=== PATIENT | male | born 1955 | race Caucasian/White ===

== ENCOUNTER 2016-03-27 01:12 | Inpatient (IN) ==
[2016-03-27 01:40] LABS: Basophils # 0.1 K/mcL (0.0-0.2); Basophils % 1.1 %; Eosinophils # 0.2 K/mcL (0.0-0.6); Eosinophils % 2.6 %; Hematocrit 40.6 % (37.5-50.1); Hemoglobin 13.6 g/dL (12.9-16.9); Immature Granulocytes % 0.4 % (0-4); Immature Platelets 2.7 % (1.1-6.1); Lymphocytes # 2.4 K/mcL (0.6-4.6); Lymphocytes % 28.1 %; Mean Corpuscular HGB Conc 33.5 g/dL (31.6-35.5); Mean Corpuscular Hemoglobin 29.9 pg (28.0-33.3); Mean Corpuscular Volume 89.2 fL (83.0-100.0); Mean Platelet Volume 9.9 fL (9.4-12.4); Monocytes # 0.8 K/mcL (0.0-1.3); Monocytes % 9.4 %; Platelet Count 269 K/mcL (140-400); Red Blood Count 4.55 M/mcL (4.19-5.50); Red Cell Distribution Width 12.9 % (11.5-14.5); Segmented Neutrophils % 58.4 %
[2016-03-27 01:52] LABS: Bilirubin,Urine Negative (Negative); Blood,Urine Negative (Negative); Clarity,Urine Clear (Clear); Color,Urine Yellow (Yellow); Glucose,Urine (UA) >=1000 mg/dL (Normal); Ketones,Urine Negative (Negative); Leukocyte Esterase,Urine Negative (Negative); Nitrite,Urine Negative (Negative); Protein,Urine 30 mg/dL (Neg-Trace); Specific Gravity,Urine 1.026 (1.010-1.025); Urobilinogen,Urine Normal (Normal)
[2016-03-27 01:54] LABS: BUN/Creatinine Ratio 14 (6-26); Blood Urea Nitrogen 29 mg/dL (8-26); Calcium 9.1 mg/dL (8.6-10.8); Carbon Dioxide 21 mEq/L (19-29); Chloride 100 mEq/L (98-109); Glucose 375 mg/dL (70-99); Osmolality,Calculated 297 (280-300); Potassium 4.4 mEq/L (3.5-4.5); Sodium 133 mEq/L (136-145); eGFR For African Americans 41 (> 60); eGFR For Non-African Americans 34 (> 60)
[2016-03-27 01:55] LABS: Acetaminophen < 1.0 mcg/mL (10-30); Ethanol < 10 mg/dL (0-10); Salicylate < 5.0 mg/dL (15-30)
[2016-03-27 01:57] LABS: Bacteria,Urine Few per hpf (None-Few); Hyaline Casts,Urine None Seen per lpf (None-Few); RBC,Urine 0-3 per hpf (0-3); Squamous Epithelial Cell,Urine Moderate per lpf (None-Few)
[2016-03-27 01:58] LABS: Amphetamine Screen,Urine Negative ng/mL (Cutoff=1000); Barbiturate Screen,Urine Negative ng/mL (Cutoff=200); Benzodiazepines Screen,Urine Negative ng/mL (Cutoff=200); Cannabinoid Screen,Urine Negative ng/mL (Cutoff = 50); Cocaine Screen,Urine Negative ng/mL (Cutoff= 300); Opiate Screen,Urine Negative ng/mL (Cutoff=300); Phencyclidine Screen,Urine Negative ng/mL (Cutoff=25)
[2016-03-27] MEDS ORDERED: Insulin NPH/REG 70/30 100 UNIT/ML (x5UNIT) SQ ONE (02:10)
[2016-03-27 03:11] LABS: VBG HCO3 27.6 mEq/L (21-27); VBG PH 7.35 pH Units (7.32-7.42)
--- NOTE | 2016-03-27 04:56 | Emergency Department Note ---
Disposition Clinical Impression: Suicidal ideation Disposition: Admitted As Inpatient Condition: Good Time of Disposition: 06:24 Psych HPI - General Chief Complaint: ED Psychiatric Symptoms Stated Complaint: SI Time Seen by Provider: 03/27/16 01:26 Source: patient Nursing Notes Reviewed: Yes Vital Signs Reviewed: Yes - History of Present Illness Pt complaint: suicidal ideation Onset (ago): Just [employer] Duration: getting worse History of similar episodes: No Improves with: none Worsens with: none Context: significant life stressor Alleged intoxication: No Associated Psychiatric Symptoms: other (aggressioin) Associated symptoms: Denies: confusion Traumatic symptoms: denies traumatic injury Treatments prior to arrival: [place] [facility]police ([place] stand off) Self harm or harm to others: admits thoughts of self harm, has plan - Related Data Allergies Allergy/AdvReac Type Severity Reaction Status Date / Time Penicillins Allergy See Verified 03/27/16 01:14 Comments Sulfa (Sulfonamide Allergy See Verified 03/27/16 01:14 Antibiotics) Comments All systems ED: reviewed and negative except as stated. Constitutional: Denies: fever Eyes: Denies: eye pain ENT ED: Denies: ear pain Cardiovascular: Denies: chest pain Gastrointestinal: Denies: abdominal pain, nausea, vomiting Genitourinary: Denies: dysuria Musculoskeletal: Denies: back pain Integumentary: Denies: rash Neurological: Reports: other (Chronic neuropathy). Denies: headache Psychiatric: Denies: anxiety Endocrine: Denies: fatigue Hematological/Lymphatic: Denies: easy bleeding Allergic/Immunologic: Denies: facial swelling Past Medical History - Past Medical History Medical history: Reports: CHF, COPD, diabetes, renal disease Psychiatric history: Reports: depression - Social History Smoking Status: Former smoker Smokeless Tobacco Status: No Alcohol use: Reports: none Drug use: Reports: none Physical Exam - General Limitations: no limitations General appearance: alert, in no apparent distress - Head Head exam: normocephalic - Eye Eye exam: Present: normal appearance, EOMI - ENT ENT exam: mucous membranes moist - Neck Neck exam: Present: full ROM - Chest Chest inspection: Present: symmetric chest wall rise - Respiratory Respiratory exam: Present: normal lung sounds bilaterally. Absent: respiratory distress - Cardiovascular Cardiovascular exam: Present: regular rate, normal rhythm - Abdominal Exam Abdominal exam: Present: soft, Non-Tender - Extremities Exam Extremities exam: Present: full ROM, normal capillary refill - Back Exam Back exam: Present: full ROM - Neurological Exam Neurological exam: Present: alert, oriented X3 - Psychiatric Psychiatric exam: Present: normal affect, depressed - Skin Skin exam: Present: warm, dry, intact, normal color. Absent: rash, cyanosis, diaphoresis Course Course Narrative: 60-year-old male diabetic arrives via squad with reported suicidal ideation. It is reported that patient had been threatening to take his life the gun during a standoff with the local authorities. He is reluctant to discuss much of the details that brought him here tonight area. Patient seen and examined. No acute distress and does not look toxic. Patient is a well-developed well- nourished obese male in no acute distress, does not look toxic. Alert and oriented 3. No cyanosis or diaphoresis. Lungs clear to auscultation bilaterally. Heart regular rate and rhythm. Abdomen soft nontender. Patient' s voice of his extremities. No gross focal neurological deficits. Does not appear agitated. He is cooperative during examination, and is agreeable for psychiatric evaluation. Workup initiated for medical clearance for psychiatric evaluation. - Reevaluation(s) Reevaluation #1: Blood glucose 375. Patient's nighttime insulin ordered, 60 units.Novolin 70/ 30. His last dose was this morning, and he has missed his nighttime dose. Patient self monitoring blood glucose fasting at home when 180s to 280s. Patient denies any frequent hypoglycemia, or asymptomatic hypoglycemia. At this point DKA is less likely, however will order serum ketones and VBG to help with medical clearance. Miss these are abnormal, patient medically cleared for 1 a evaluation Time: 02:25 Vital Signs Temperature 98.3 F 03/27/16 01:18 Pulse Rate 53 03/27/16 01:18 Respiratory Rate 16 03/27/16 01:18 Blood Pressure 136/73 03/27/16 01:18 O2 Sat by Pulse Oximetry 95 03/27/16 01:18 Temperature 98.3 F 03/27/16 01:18 Pulse Rate 50 03/27/16 04:57 Respiratory Rate 16 03/27/16 05:45 Blood Pressure 104/60 03/27/16 05:45 O2 Sat by Pulse Oximetry 95 03/27/16 04:57 Oxygen Delivery Oxygen Delivery Room Air Psych - MDM Narrative Medical decision making narrative: Patient was medically cleared and evaluated by when a staff did discuss patient with the on-call psychiatrist Dr. Rowe who agreed for involuntary admission for inpatient treatment and stabilization. Patient was pink slipped. His vitals are within normal limits. Patient be transferred to inpatient care. - Lab Data Lab results reviewed: Yes I reviewed the patient's lab results. Result diagrams: 03/27/16 01:34 03/27/16 01:34 Lab Results 03/27/16 03/27/16 03/27/16 Range/Units 01:34 01:34 01:34 WBC 8.5 (4.3-11.1) K/mcL RBC 4.55 (4.19-5.50) M/mcL Hgb 13.6 (12.9-16.9) g/dL Hct 40.6 (37.5-50.1) % MCV 89.2 (83.0-100.0) fL MCH 29.9 (28.0-33.3) pg MCHC 33.5 (31.6-35.5) g/dL RDW 12.9 (11.5-14.5) % Plt Count 269 (140-400) K/mcL MPV 9.9 (9.4-12.4) fL Immature Gran % 0.4 (0-4) % Seg Neutrophils % 58.4 % Lymphocytes % 28.1 % Monocytes % 9.4 % Eosinophils % 2.6 % Basophils % 1.1 % Neutrophils # 5.0 (1.6-8.9) K/mcL Lymphocytes # 2.4 (0.6-4.6) K/mcL Monocytes # 0.8 (0.0-1.3) K/mcL Eosinophils # 0.2 (0.0-0.6) K/mcL Basophils # 0.1 (0.0-0.2) K/mcL Immature Plt Fraction 2.7 (1.1-6.1) % VBG pH (7.32-7.42) pH Units VBG pCO2 (41-51) mmHg VBG pO2 (25-40) mmHg VBG HCO3 (21-27) mEq/L Sodium 133 L (136-145) mEq/L Potassium 4.4 (3.5-4.5) mEq/L Chloride 100 (98-109) mEq/L Carbon Dioxide 21 (19-29) mEq/L BUN 29 H (8-26) mg/dL Creatinine 2.02 H (0.72-1.25) mg/dL Est GFR ( Amer) 41 L (> 60) Est GFR (Non-Af Amer) 34 L (> 60) BUN/Creatinine Ratio 14 (6-26) Glucose 375 H (70-99) mg/dL POC Glucose (58-89) Calculated Osmolality 297 (280-300) Calcium 9.1 (8.6-10.8) mg/dL Beta-Hydroxybutyric Acd 0.18 (0.02-0.27) mmol/L Urine Color (Yellow) Urine Clarity (Clear) Urine pH (5.0-8.0) pH Units Ur Specific [place] (1.010-1.025) Urine Protein (Neg-Trace) mg/dL Urine Glucose (UA) (Normal) mg/dL Urine Ketones (Negative) mg/dL Urine Blood (Negative) Urine Nitrite (Negative) Urine Bilirubin (Negative) Urine Urobilinogen (Normal) mg/dL Ur Leukocyte Esterase (Negative) Urine Microscopic RBC (0-3) per hpf Urine Microscopic WBC (0-3) per hpf Ur Squamous Epith Cells (None-Few) per lpf Urine Bacteria (None-Few) per hpf Hyaline Casts (None-Few) per lpf Salicylates < 5.0 L (15-30) mg/dL Urine Opiates Screen (Pqzvcq=562) ng/mL Acetaminophen < 1.0 L (10-30) mcg/mL Ur Barbiturates Screen (Ouuwwt=107) ng/mL Ur Phencyclidine Scrn (Cutoff=25) ng/mL Ur Amphetamines Screen (Hzuoie=0942) ng/mL U Benzodiazepines Scrn (Fnktcu=651) ng/mL Urine Cocaine Screen (Cutoff= 300) ng/mL U Marijuana (THC) Screen (Cutoff = 50) ng/mL Ethyl Alcohol < 10 (0-10) mg/dL 03/27/16 03/27/16 03/27/16 Range/Units 01:45 01:45 02:58 WBC (4.3-11.1) K/mcL RBC (4.19-5.50) M/mcL Hgb (12.9-16.9) g/dL Hct (37.5-50.1) % MCV (83.0-100.0) fL MCH (28.0-33.3) pg MCHC (31.6-35.5) g/dL RDW (11.5-14.5) % Plt Count (140-400) K/mcL MPV (9.4-12.4) fL Immature Gran % (0-4) % Seg Neutrophils % % Lymphocytes % % Monocytes % % Eosinophils % % Basophils % % Neutrophils # (1.6-8.9) K/mcL Lymphocytes # (0.6-4.6) K/mcL Monocytes # (0.0-1.3) K/mcL Eosinophils # (0.0-0.6) K/mcL Basophils # (0.0-0.2) K/mcL Immature Plt Fraction (1.1-6.1) % VBG pH (7.32-7.42) pH Units VBG pCO2 (41-51) mmHg VBG pO2 (25-40) mmHg VBG HCO3 (21-27) mEq/L Sodium (136-145) mEq/L Potassium (3.5-4.5) mEq/L Chloride (98-109) mEq/L Carbon Dioxide (19-29) mEq/L BUN (8-26) mg/dL Creatinine (0.72-1.25) mg/dL Est GFR ( Amer) (> 60) Est GFR (Non-Af Amer) (> 60) BUN/Creatinine Ratio (6-26) Glucose (70-99) mg/dL POC Glucose 317 H (58-89) Calculated Osmolality (280-300) Calcium (8.6-10.8) mg/dL Beta-Hydroxybutyric Acd (0.02-0.27) mmol/L Urine Color Yellow (Yellow) Urine Clarity Clear (Clear) Urine pH 6.0 (5.0-8.0) pH Units Ur Specific [place] 1.026 H (1.010-1.025) Urine Protein 30 H (Neg-Trace) mg/dL Urine Glucose (UA) >=1000 H (Normal) mg/dL Urine Ketones Negative (Negative) mg/dL Urine Blood Negative (Negative) Urine Nitrite Negative (Negative) Urine Bilirubin Negative (Negative) Urine Urobilinogen Normal (Normal) mg/dL Ur Leukocyte Esterase Negative (Negative) Urine Microscopic RBC 0-3 (0-3) per hpf Urine Microscopic WBC 3-5 H (0-3) per hpf Ur Squamous Epith Cells Moderate H (None-Few) per lpf Urine Bacteria Few (None-Few) per hpf Hyaline Casts None Seen (None-Few) per lpf Salicylates (15-30) mg/dL Urine Opiates Screen Negative (Feeoyd=958) ng/mL Acetaminophen (10-30) mcg/mL Ur Barbiturates Screen Negative (Ezuaag=220) ng/mL Ur Phencyclidine Scrn Negative (Cutoff=25) ng/mL Ur Amphetamines Screen Negative (Vdbjzf=3408) ng/mL U Benzodiazepines Scrn Negative (Yxioba=608) ng/mL Urine Cocaine Screen Negative (Cutoff= 300) ng/mL U Marijuana (THC) Screen Negative (Cutoff = 50) ng/mL Ethyl Alcohol (0-10) mg/dL 03/27/16 03/27/16 03/27/16 Range/Units 03:00 03:04 04:48 WBC (4.3-11.1) K/mcL RBC (4.19-5.50) M/mcL Hgb (12.9-16.9) g/dL Hct (37.5-50.1) % MCV (83.0-100.0) fL MCH (28.0-33.3) pg MCHC (31.6-35.5) g/dL RDW (11.5-14.5) % Plt Count (140-400) K/mcL MPV (9.4-12.4) fL Immature Gran % (0-4) % Seg Neutrophils % % Lymphocytes % % Monocytes % % Eosinophils % % Basophils % % Neutrophils # (1.6-8.9) K/mcL Lymphocytes # (0.6-4.6) K/mcL Monocytes # (0.0-1.3) K/mcL Eosinophils # (0.0-0.6) K/mcL Basophils # (0.0-0.2) K/mcL Immature Plt Fraction (1.1-6.1) % VBG pH 7.35 (7.32-7.42) pH Units VBG pCO2 50 (41-51) mmHg VBG pO2 37 (25-40) mmHg VBG HCO3 27.6 H (21-27) mEq/L Sodium (136-145) mEq/L Potassium (3.5-4.5) mEq/L Chloride (98-109) mEq/L Carbon Dioxide (19-29) mEq/L BUN (8-26) mg/dL Creatinine (0.72-1.25) mg/dL Est GFR ( Amer) (> 60) Est GFR (Non-Af Amer) (> 60) BUN/Creatinine Ratio (6-26) Glucose (70-99) mg/dL POC Glucose 272 H 231 H (58-89) Calculated Osmolality (280-300) Calcium (8.6-10.8) mg/dL Beta-Hydroxybutyric Acd (0.02-0.27) mmol/L Urine Color (Yellow) Urine Clarity (Clear) Urine pH (5.0-8.0) pH Units Ur Specific [place] (1.010-1.025) Urine Protein (Neg-Trace) mg/dL Urine Glucose (UA) (Normal) mg/dL Urine Ketones (Negative) mg/dL Urine Blood (Negative) Urine Nitrite (Negative) Urine Bilirubin (Negative) Urine Urobilinogen (Normal) mg/dL Ur Leukocyte Esterase (Negative) Urine Microscopic RBC (0-3) per hpf Urine Microscopic WBC (0-3) per hpf Ur Squamous Epith Cells (None-Few) per lpf Urine Bacteria (None-Few) per hpf Hyaline Casts (None-Few) per lpf Salicylates (15-30) mg/dL Urine Opiates Screen (Xzamkq=917) ng/mL Acetaminophen (10-30) mcg/mL Ur Barbiturates Screen (Nytogb=352) ng/mL Ur Phencyclidine Scrn (Cutoff=25) ng/mL Ur Amphetamines Screen (Hdzehb=6970) ng/mL U Benzodiazepines Scrn (Bfahus=312) ng/mL Urine Cocaine Screen (Cutoff= 300) ng/mL U Marijuana (THC) Screen (Cutoff = 50) ng/mL Ethyl Alcohol (0-10) mg/dL Psychiatric Medical Clearance - Medical Clearance Checklist Medical History: No Social History Section defined Current Vitals: Last Vital Signs Temp 98.3 F 03/27/16 01:18 Pulse 50 03/27/16 04:57 Resp 16 03/27/16 05:45 BP 104/60 03/27/16 05:45 Pulse Ox 95 03/27/16 04:57 Psychiatric Lab Panel: Drug Levels and Toxicity 03/27/16 03/27/16 01:34 01:45 Urine Opiates Screen Negative Acetaminophen < 1.0 L Ur Barbiturates Screen Negative Ur Phencyclidine Scrn Negative Ur Amphetamines Screen Negative U Benzodiazepines Scrn Negative Urine Cocaine Screen Negative U Marijuana (THC) Screen Negative Ethyl Alcohol < 10 Abnormal Labs: Abnormal lab results VBG HCO3 27.6 mEq/L (21-27) H 03/27/16 03:04 Sodium 133 mEq/L (136-145) L 03/27/16 01:34 BUN 29 mg/dL (8-26) H 03/27/16 01:34 Creatinine 2.02 mg/dL (0.72-1.25) H 03/27/16 01:34 Est GFR ( Amer) 41 (> 60) L 03/27/16 01:34 Est GFR (Non-Af Amer) 34 (> 60) L 03/27/16 01:34 Glucose 375 mg/dL (70-99) H 03/27/16 01:34 POC Glucose 231 (58-89) H 03/27/16 04:48 Ur Specific [place] 1.026 (1.010-1.025) H 03/27/16 01:45 Urine Protein 30 mg/dL (Neg-Trace) H 03/27/16 01:45 Urine Glucose (UA) >=1000 mg/dL (Normal) H 03/27/16 01:45 Urine Microscopic WBC 3-5 per hpf (0-3) H 03/27/16 01:45 Ur Squamous Epith Cells Moderate per lpf (None-Few) H 03/27/16 01:45 Salicylates < 5.0 mg/dL (15-30) L 03/27/16 01:34 Acetaminophen < 1.0 mcg/mL (10-30) L 03/27/16 01:34 Statement of Medical Clearance: I have evaluated the patient, reviewed diagnostic information, and certify that the patient's medical condition is sufficiently stable that transfer to the psychiatric unit does not pose a significant risk of deterioration.
[2016-03-27] MEDS ORDERED: *HR* LORazepam 2 MG/ML VIAL IM PRN (06:02)
[2016-03-27] MEDS ORDERED: *HR* LORazepam 1 MG TABLET PO PRN (06:02)
[2016-03-27] MEDS ORDERED: MOM Conc 10 ML UD.LIQ PO PRN (06:02)
[2016-03-27] MEDS ORDERED: traZODone 50 MG TABLET PO PRN (06:02)
[2016-03-27] MEDS ORDERED: Acetaminophen 325 MG TABLET PO PRN (06:02)
[2016-03-27] MEDS ORDERED: Mag Hydrox/Al Hydrox/Simeth 30 ML UDC PO PRN (06:02)
[2016-03-27] MEDS ORDERED: hydrOXYzine pamoate 25 MG CAPSULE PO PRN (06:02)
[2016-03-27] MEDS ORDERED: Haloperidol Lactate 5 MG/ML VIAL IM PRN (06:02)
[2016-03-27] MEDS ORDERED: D5% in Water 1,000 ML IV PRN (09:17)
[2016-03-27] MEDS ORDERED: Dextrose Gel 15 GM PO PRN ×2 (09:17)
[2016-03-27] MEDS ORDERED: *HR* Dextrose 50 % in Water (Syg) 50 ML SYRINGE IVP PRN (09:17)
--- NOTE | 2016-03-27 09:24 | Internal Medicine Consult Note ---
<Roberta Estrada - Last Filed: 03/27/16 09:55> Date of Encounter: 03/27/16 Time of Encounter: 08:50 Internal Medicine - CN: HPI - Data of Consult Consult date: 03/27/16 Requesting Physician: Orestes Rowe DO - Consult Narrative History of present illness: Mr. Ribeiro is a 60 year old male with uncontrolled Type II DM, CHF, COPD, and CKD Stage III. We were called to consult pt on mental health unit for his elevated POC blood glucose, as well as his serum glucose. Pt is admitted for depression and SI, and during exam was very flat and states that he knows little about his medications, as his takes care of them for him. Normal fasting blood glucose for him is anywhere from 160mg/dl-250mg/dl. Pt states that he does not watch his diet and that he doesn't skip any doses of insulin. Trending his labs for the last 2 years, pt's serum glucose is chronically elevated, normally in the 200s, 375mg/dl today. Pt's creatinine is also chronically elevated, as well, 2.02 today. - Constitutional Constitutional: no fatigue, no fever(s), no weakness, no weight gain, no weight loss - EENT Eyes: no change in vision, no loss of vision - Cardiovascular Cardiovascular ROS IM: no chest pain, no dyspnea on exertion, no lightheadedness - Respiratory Respiratory: no cough, no dyspnea on exertion, no wheezing, no chest congestion - Gastrointestinal Gastrointestinal: no abdominal pain, no diarrhea, no nausea, no vomiting - Musculoskeletal Musculoskeletal ROS IM: no muscle weakness - Psychiatric Psychiatric: behavioral changes, suicidal ideation Past Med Surg Social Fam HX - Past Medical History Medical history: CHF, COPD, diabetes, renal disease Psychiatric history: depression - Social History Smoking Status: Former smoker Smokeless Tobacco Status: No Alcohol use: none Drug use: none Internal Medicine - CN: Meds Amlodipine Besylate 10 mg PO DAILY 03/27/16 [History] Aspirin 81 mg PO DAILY 03/27/16 [History] Atorvastatin [Lipitor] 40 mg PO HS 03/27/16 [History] Citalopram Hydrobromide [Citalopram HBr] 80 mg PO DAILY 03/27/16 [History] Ergocalciferol (VITAMIN D2) [Vitamin D2] 50,000 unit PO 2XW 03/27/16 [History] Furosemide [Lasix] 40 mg PO DAILY 03/27/16 [History] Gabapentin [Neurontin] 600 mg PO BID 03/27/16 [History] Glimepiride [Amaryl] 4 mg PO QAM 03/27/16 [History] Insulin Glargine,Hum.rec.anlog [Lantus Solostar] 20 unit SQ HS 03/27/16 [History ] Insulin NPH Hum/Reg Insulin Hm [Novolin 70-30 100 Unit/ml Vial] 45 unit SQ BID PRN 03/27/16 [History] Metoprolol [Lopressor] 25 mg PO BID 03/27/16 [History] Spironolactone [Aldactone] 50 mg PO DAILY 03/27/16 [History] Allergies Penicillins Allergy (Verified 03/27/16 01:14) See Comments unknown, had rxn as child Sulfa (Sulfonamide Antibiotics) Allergy (Verified 03/27/16 01:14) See Comments unknown Internal Medicine - CN: Exam - Constitutional Vitals: Temp Pulse Resp BP Pulse Ox 98.2 F 76 20 160/91 95 03/27/16 08:37 03/27/16 08:37 03/27/16 08:37 03/27/16 08:37 03/27/16 04:57 General appearance IM: Present: A&O X 3, pleasant, obese, answers questions appropriately - Head Head exam: Present: atraumatic - Eye Eye exam: Present: normal appearance, conjuntiva pink - ENT ENT exam: Present: mucous membranes moist - Neck Neck exam general surgery: Present: normal inspection. Absent: tenderness - Respiratory Respiratory exam: Present: decreased breath sounds, rales, rhonchi, wheezes. Absent: accessory muscle use, chest wall tenderness, respiratory distress - Cardiovascular Cardiovascular exam IM: Present: RRR, +S1, +S2 - GI/Abdominal GI/Abdominal exam IM: Present: distended, normal bowel sounds. Absent: tenderness - Extremities Exam Extremities exam IM: Present: pedal edema, warm Additional comments: Pt with +2 non-pitting edema, pt states that it is not worse than normal. - Neurological Exam Neurological exam: Present: alert, oriented X3, strengths equal and symetr throughout Internal Medicine - CN: Reslt - Labs CBC & Chem 7: 03/27/16 01:34 03/27/16 01:34 - Assessment and Plan (1) Uncontrolled diabetes mellitus Current Visit: Yes Status: Chronic Assessment and plan: Pt with uncontrolled DM with consistently high blood glucose. Pt states that is his consistent with his medications and is non-adherent to diet or exercise. Will monitor blood glucose ac/hs Nutrition insulin, dosed for creatinine clearance Sliding scale coverage Diabetic/Renal diet Consult nutrition educator A1c Qualifiers: Diabetes mellitus type: type 2 Diabetes mellitus complication status: with kidney complications Diabetes mellitus complication detail: with chronic kidney disease (2) CKD (chronic kidney disease) stage 3, GFR 30-59 ml/min Current Visit: Yes Status: Chronic Assessment and plan: Creatinine stable. Baseline at this time. Avoid NSAIDs Avoid nephrotoxins Continue to monitor. Consult Discharge Plan - Plan Referrals: [facility] [Outside] - 04/03/16 10:00 am (The above appointment is with Esperanza Skelton, counselor. Please arrive 15 minutes early to complete paperwork. Please bring your insurance card and photo ID. If you do not have insurance, bring proof of income to apply for the sliding fee scale. Your counselor will refer you to see the psychiatric prescriber as well if indicated. If you are unable to keep this appointment, 24 hour business notice of cancellation is expected. ) <Clark Lynch - Last Filed: 03/27/16 16:24> Date of Encounter: 03/27/16 - Attending Attestation I examined this patient and my medical decision-making was reviewed with the Advanced Practice Provider. I agree with the documented findings, disposition and treatment plan as described except to the extent set forth below. Pt is NAD, morbidly obese, heart: RRR S1S2, no murmur Plan:hold oral anti DM meds, start nsulin Levemir 35 U BID (pt reports use of 60U 70/30 bid at home), premeal humalog and sliding scale. Plan d/w psychiatrist. will order CPAP QHS for DIMITRI. Will follow Internal Medicine - CN: HPI - Data of Consult Requesting Physician: Orestes Rowe DO - Consult Narrative History of present illness: Mr. Ribeiro is a 60 year old male Internal Medicine - CN: Exam - Constitutional Vitals: Temp Pulse Resp BP Pulse Ox 100.4 F H 69 16 118/69 95 03/27/16 16:00 03/27/16 16:00 03/27/16 16:00 03/27/16 16:00 03/27/16 04:57 Internal Medicine - CN: Yamileth - Labs CBC & Chem 7: 03/27/16 01:34 03/27/16 01:34
[2016-03-27] MEDS: Insulin LISPRO 300 UNITS/3 ML VIAL SQ SCH ×4 (11:48→16:34)
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
[2016-03-27] MEDS ORDERED: Insulin LISPRO 300 UNITS/3 ML VIAL SQ SCH (21:00)
[2016-03-27] MEDS: Gabapentin 300 MG CAPSULE PO SCH (21:04)
[2016-03-27] MEDS: Insulin DETEMIR 100 UNIT/ML X5UNITS SQ SCH (21:04)
[2016-03-28] MEDS: Insulin LISPRO 300 UNITS/3 ML VIAL SQ SCH ×4 (08:16→11:39)
[2016-03-28 08:23] LABS: Hematocrit 42.3 % (37.5-50.1); Hemoglobin 14.1 g/dL (12.9-16.9); Immature Platelets 2.6 % (1.1-6.1); Mean Corpuscular HGB Conc 33.3 g/dL (31.6-35.5); Mean Corpuscular Hemoglobin 30.2 pg (28.0-33.3); Mean Corpuscular Volume 90.6 fL (83.0-100.0); Mean Platelet Volume 10.2 fL (9.4-12.4); Red Blood Count 4.67 M/mcL (4.19-5.50); Red Cell Distribution Width 13.3 % (11.5-14.5)
[2016-03-28 08:36] LABS: Calcium 9.3 mg/dL (8.6-10.8); Potassium 4.6 mEq/L (3.5-4.5)
[2016-03-28] MEDS: Gabapentin 300 MG CAPSULE PO SCH (08:48)
[2016-03-28] MEDS: Insulin DETEMIR 100 UNIT/ML X5UNITS SQ SCH (08:53)
[2016-03-28] MEDS ORDERED: amLODIPine 5 MG TABLET PO SCH (09:00)
[2016-03-28] MEDS ORDERED: Aspirin 81 MG TAB.CHEW PO SCH (09:00)
[2016-03-28] MEDS ORDERED: Furosemide 40 MG TABLET PO SCH (09:00)
[2016-03-28 12:03] VITALS: BP 126/84
--- NOTE | 2016-03-28 13:59 | Discharge Summary ---
Date of Encounter: 03/28/16 Time of Encounter: 14:00 Diagnosis - Discharge Diagnosis (1) Major depression, recurrent, chronic Status: Acute Medications - Discharge Medications Amlodipine Besylate 10 mg PO DAILY 03/27/16 [History] Aspirin 81 mg PO DAILY 03/27/16 [History] Atorvastatin [Lipitor] 40 mg PO HS 03/27/16 [History] Citalopram Hydrobromide [Citalopram HBr] 40 mg PO DAILY 03/27/16 [History] Ergocalciferol (VITAMIN D2) [Vitamin D2] 50,000 unit PO 2XW 03/27/16 [History] Furosemide [Lasix] 40 mg PO DAILY 03/27/16 [History] Gabapentin [Neurontin] 600 mg PO BID 03/27/16 [History] Glimepiride [Amaryl] 4 mg PO QAM 03/27/16 [History] Insulin Glargine,Hum.rec.anlog [Lantus Solostar] 20 unit SQ HS 03/27/16 [History ] Insulin NPH Hum/Reg Insulin Hm [Novolin 70-30 100 Unit/ml Vial] 45 unit SQ BID PRN 03/27/16 [History] Metoprolol [Lopressor] 25 mg PO BID 03/27/16 [History] Spironolactone [Aldactone] 50 mg PO DAILY 03/27/16 [History] Allergies Penicillins Allergy (Verified 03/27/16 01:14) See Comments unknown, had rxn as child Sulfa (Sulfonamide Antibiotics) Allergy (Verified 03/27/16 01:14) See Comments unknown Results Procedures and tests throughout hospitalization: Completed Lab Orders Category Date Time Status Chem 7 [Basic Metabolic Panel] AM 0400 Lab 03/28/16 07:59 Completed Complete Blood Count w/o Diff [HEME] AM 0400 Lab 03/28/16 07:59 Completed Hgb A1C Routine Lab 03/27/16 01:34 Completed Provider Date of admission: 03/27/16 05:55 Primary care physician: PCP NO Consults: 03/27/16 06:19 Consult to Hospitalist [CONS] Routine Consulting Provider: Hospitalist Otiliagee Reason for Consult: diabetes management Time Notified: 06:30 Call Completed: Yes 03/27/16 09:17 Consult to Game Protector [CONS] Routine Comment: Discharging clinician: Orestes Rowe Assessment and Plan - Patient/Caregiver Discharge Instructions Activity: other (Admit [facility] medical [facility]) Diet: diabetic diet - Follow up Plan Follow up with: [facility] [Outside] - 04/03/16 10:00 am (The above appointment is with Esperanza Skelton, counselor. Please arrive 15 minutes early to complete paperwork. Please bring your insurance card and photo ID. If you do not have insurance, bring proof of income to apply for the sliding fee scale. Your counselor will refer you to see the psychiatric prescriber as well if indicated. If you are unable to keep this appointment, 24 hour business notice of cancellation is expected. ) Functional capacity at discharge: independent ambulation Overall status at discharge: other (Patient is no longer suicidal, but is experiencing medical issues that necessitate an admission to a medical unit) Disposition: Transfer Hospital Swing Bed Hospital Course Hospital course: Mr. Ribeiro is a 60 year old male who was seen today while he was still lying in his medical bed in his room on 1A with his CPAP and oxygen on. He told me, regarding his mental health, he was "pretty good". He denied being suicidal/ homicidal. He states that he feels very tired today and did not sleep well last night. He reports having shortness of breath and "feeling like my lungs are filling up with fluid again like they did before when I had congestive heart failure". He feels very thirsty and his blood glucose has been running in the 200's the majority of time since he has been here. He tells me this is not unusual for his blood glucose. He also tells me that earlier this morning , he was having tightness on the left side of his chest and arm. He tells me that it lasted for a brief period of less than a minute, but he thought I should know. A consult was ordered for medical to come down and evaluate for his shortness of breath and previous chest pain. An EKG was completed and medical evaluated his elevated blood glucose and with his complex, poor controlled medical issues and poor hydration, decided to admit him to a medical unit. His arrived while this was taking place. I was able to clarify with her his antidepressant medication which is Celexa 80 mg PO Q day, which he is taking and he was not aware of it. I discussed with her and him that that was a high dose and the possibility of decreasing the dose and/or potentially augmenting it with Wellbutrin in the future targeting his depressive symptoms. His medical situation would have to be taken into consideration since the Wellbutrin could cause an elevation in blood pressure. I also discussed that that high-dose Celexa might, in part, be what is causing his decreased energy and feeling slow and tired. That coupled with his continuous elevated blood glucose as well as other chronic medical issues of renal failure. I explained to the nurse practitioner who was orchestrating his medical admission that I would come up and talk to him further about psychotropic medications while he was on the medical floor and work with him and his to make changes if needed I explained to the nurse practitioner, also, that he was no longer suicidal and did not need to be on a one-to-one on the unit medical. Discharge orders were given to discharge off the on a psychiatric unit and he was admitted to a medical unit for further evaluation and treatment. - Time Spent with Patient Total time spent providing and/or coordinating discharge services: 50 min Greater than 30 minutes (Transferring to a medical unit and I will follow up with him there tomorrow) Quality - Multiple Antipsychotics Patient discharged on 2 or more antipsychotic medications: No Procedures - Procedures Procedures: Medication Management Mental Status Exam - Mental Status Exam Patient orientation: Yes Person, Yes Time, Yes Place, Yes Circumstance Level of alertness: Alert Patient appearance: Appropriate, Obese Behavior: anxious (Feels short of breath), restless Psychomotor activity: Normal Eye contact: Maintains Eye Contact Mood description: Anxious Affect description: congruent with mood Speech pattern: Normal rate, Normal rhythm, Normal tone Speech Volume: Normal Thought process: Linear, Goal Oriented Thought Content: Yes Intact Judgment: Good Insight: Partial
[2016-03-28 14:37] LABS: Bilirubin,Urine Negative (Negative); Blood,Urine Negative (Negative); Clarity,Urine Clear (Clear); Color,Urine Yellow (Yellow); Glucose,Urine (UA) 500 mg/dL (Normal); Ketones,Urine Negative (Negative); Leukocyte Esterase,Urine Trace (Negative); Nitrite,Urine Negative (Negative); Protein,Urine 30 mg/dL (Neg-Trace); Specific Gravity,Urine 1.015 (1.010-1.025); Urobilinogen,Urine Normal (Normal)
[2016-03-28 15:01] LABS: Bacteria,Urine Few per hpf (None-Few); WBC,Urine 0-3 per hpf (0-3)
--- NOTE | 2016-03-30 00:30 | Electrocardiograph Report ---
[facility] Test Date: 2016-03-28 Pat Name: Eduardo Ribeiro Department: 101 Room: 1A22 Gender: M [employer] Bi Developer: OCTAVIO : 1955 Requested By: Roberta Estrada Order Number: [id number] Reading MD: Femi Cruz MD Measurements Intervals [place] Rate: 54 P: 64 DE: 194 QRS: 59 QRSD: 88 T: 74 QT: 419 QTc: 404 Interpretive Statements SINUS BRADYCARDIA LOW QRS VOLTAGE IN PRECORDIAL LEADS Electronically Signed On 03-30-16 00:29:35 EST by Femi Crzu MD
== END 2016-03-28 14:30 | disposition other institution (70) | DRG 885 ==
LOC: EMEROO 01:12 → 1ANU 05:45
PROVIDERS: ADMIT Psychiatry & Neurology Psychiatry; ATTEND Psychiatry & Neurology Psychiatry

== ENCOUNTER 2016-03-28 13:40 | Observation (INO) ==
[2016-03-28] MEDS ORDERED: Acetaminophen 325 MG TABLET PO PRN (13:44)
[2016-03-28] MEDS ORDERED: Naloxone 0.4 MG/ML INJ IVP PRN (13:44)
[2016-03-28] MEDS ORDERED: D5% in Water 1,000 ML IV PRN (16:20)
[2016-03-28] MEDS ORDERED: Dextrose Gel 15 GM PO PRN ×2 (16:20)
[2016-03-28] MEDS ORDERED: *HR* Dextrose 50 % in Water (Syg) 50 ML SYRINGE IVP PRN (16:20)
[2016-03-28] MEDS ORDERED: Insulin LISPRO 300 UNITS/3 ML VIAL SQ SCH ×2 (16:30→21:00)
--- NOTE | 2016-03-28 16:31 | Internal Med History&Physical ---
Date of Encounter: 03/28/16 Time of Encounter: 13:00 Assessment and Plan (1) Chest pain Current visit: Yes Status: Acute Patient is at risk for ACS due to diabetes, morbid obesity, obstructive sleep apnea. First troponin was negative. EKG showed no acute ischemic changes. We will continue to follow serial troponins and EKG. If those are negative will do a stress test in the morning. Check echocardiogram and Doppler lower extremities. Patient is not a candidate for CT angiogram of the chest due to his kidney function. Qualifiers: Chest pain type: unspecified Qualified Code(s): R07.9 - Chest pain, unspecified (2) CKD (chronic kidney disease) stage 3, GFR 30-59 ml/min Current visit: No Status: Chronic At baseline (creatinine in 2015 was 1.93, GFR 43). start low-dose furosemide. Fluid restriction. Avoid nephrotoxins as possible. Close monitoring. (3) CHF (congestive heart failure) Current visit: Yes Status: Acute Unknown type of heart failure. Will check echocardiogram. Chest x-ray showed no acute process. Could be right-sided heart failure from COPD and sleep apnea. We will increase Lasix to twice a day. Fluid restriction. Qualifiers: Congestive heart failure type: unspecified congestive heart failure type Congestive heart failure chronicity: chronic Qualified Code(s): I50.9 - Heart failure, unspecified (4) HTN (hypertension) Current visit: No Status: Chronic Controlled. Continue home dose of amlodipine, and metoprolol. We will hold home dose of spironolactone due to kidney function. Qualifiers: Hypertension type: essential hypertension Qualified Code(s): I10 - Essential (primary) hypertension (5) Uncontrolled diabetes mellitus Current visit: No Status: Chronic Not controlled. Continue Levemir 35 units twice a day. Insulin sliding scale medium dose. Strict Diabetic diet. 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 (7) DIMITRI (obstructive sleep apnea) Current visit: Yes Status: Acute Continue CPAP at bedtime and during naps. (8) Suicidal ideation Current visit: Yes Status: Acute Consultation psychiatry service. Sitter at bedside. Internal Medicine - H&P: HPI Chief complaint: Chest pain and shortness of breath for 2 days. Admitted From: Direct Admit Plans for Post Hospital Care: Transfer Psych Facility History of present illness: Mr. Ribeiro is a 60 year old male with past medical history of COPD, diabetes mellitus, hypertension, CKD stage III, obstructive sleep apnea on CPAP, and morbid obesity. Patient was admitted to our inpatient psychiatry floor yesterday morning because of suicidal ideations. This morning, she complains of left-sided chest pain on and off for the past few days. He described the chest pain as pressure type, intensity 5/10, radiated to left arm, and associated with shortness of breath. He has been compliant with the CPAP machine. Poor compliance with diet and medications at home. No syncope. No palpitations. No cough. No fever. No lightheadedness. No focal deficit. No abdominal pain. Chronic lower extremity edema up to the knees. Patient had left heart catheterization in 2013 note outside hospital that was negative. He was admitted to our hospital in March 2014 because of chest pain and had negative troponins, EKG and stress test. Past Med Surg Social Fam HX - Past Medical History Medical history: CHF, COPD, diabetes, renal disease Psychiatric history: depression, PTSD, previous psychiatric hospitalization - Past Surgical History Surgical History: no surgical history - Social History Smoking Status: Former smoker Smokeless Tobacco Status: No Alcohol use: none Drug use: none - Family History Father Living Status: Age at : 70 Cause of : [place] Hx Family Cardiac Disorders: Yes Internal Medicine - H&P: Meds Amlodipine Besylate 10 mg PO DAILY 03/27/16 [History] Aspirin 81 mg PO DAILY 03/27/16 [History] Atorvastatin [Lipitor] 40 mg PO HS 03/27/16 [History] Citalopram Hydrobromide [Citalopram HBr] 40 mg PO DAILY 03/27/16 [History] Ergocalciferol (VITAMIN D2) [Vitamin D2] 50,000 unit PO 2XW 03/27/16 [History] Furosemide [Lasix] 40 mg PO DAILY 03/27/16 [History] Gabapentin [Neurontin] 600 mg PO BID 03/27/16 [History] Glimepiride [Amaryl] 4 mg PO QAM 03/27/16 [History] Insulin Glargine,Hum.rec.anlog [Lantus Solostar] 20 unit SQ HS 03/27/16 [History ] Insulin NPH Hum/Reg Insulin Hm [Novolin 70-30 100 Unit/ml Vial] 45 unit SQ BID PRN 03/27/16 [History] Metoprolol [Lopressor] 25 mg PO BID 03/27/16 [History] Spironolactone [Aldactone] 50 mg PO DAILY 03/27/16 [History] Allergies Penicillins Allergy (Verified 03/27/16 01:14) See Comments unknown, had rxn as child Sulfa (Sulfonamide Antibiotics) Allergy (Verified 03/27/16 01:14) See Comments unknown All Systems PM: A 10-system review of systems was performed and is negative for pertinent findings except as documented above in the HPI. - Constitutional Vitals: Temp Pulse Resp BP Pulse Ox 98.3 F 54 16 133/68 94 L 03/28/16 15:34 03/28/16 15:34 03/28/16 15:34 03/28/16 15:34 03/28/16 15:34 General appearance: Present: cooperative, A&O X 3, morbidly obese, pleasant, no acute distress, answers questions appropriately - Eye Eye exam: Present: PERRL, sclera anicteric - Neck Neck exam general surgery: Present: supple, trachea midline. Absent: lymphadenopathy - Respiratory Respiratory exam: Present: decreased breath sounds (at bases) - Cardiovascular Cardiovascular exam: Present: distant heart sounds, RRR - GI/Abdominal GI/Abdominal exam: Present: normal bowel sounds, soft. Absent: distended, tenderness - Extremities Exam Extremities exam: Present: pedal edema (2+ LE edema) - Back Exam Back exam: Absent: CVA tenderness (L), CVA tenderness (R) - Neurological Exam Neurological exam: Present: alert, oriented X3, no focal deficits. Absent: facial droop, speech deficit Internal Med - H&P Results - Labs CBC & Chem 7: 03/28/16 16:42 - Impressions ITS Impressions Chest X-Ray 03/28/16 13:45 IMPRESSION: No active cardiopulmonary disease D/ / Arthur Oviedo MD / Arthur Oviedo MD Interpreting Provider: Arthur Oviedo MD
[2016-03-28 16:50] LABS: Basophils # 0.1 K/mcL (0.0-0.2); Basophils % 0.6 %; Eosinophils # 0.2 K/mcL (0.0-0.6); Eosinophils % 2.3 %; Hematocrit 39.3 % (37.5-50.1); Hemoglobin 13.1 g/dL (12.9-16.9); Immature Granulocytes % 0.2 % (0-4); Immature Platelets 2.6 % (1.1-6.1); Lymphocytes # 2.6 K/mcL (0.6-4.6); Lymphocytes % 27.6 %; Mean Corpuscular HGB Conc 33.3 g/dL (31.6-35.5); Mean Corpuscular Hemoglobin 29.8 pg (28.0-33.3); Mean Corpuscular Volume 89.5 fL (83.0-100.0); Mean Platelet Volume 9.7 fL (9.4-12.4); Monocytes # 0.9 K/mcL (0.0-1.3); Monocytes % 9.8 %; Neutrophils # 5.5 K/mcL (1.6-8.9); Platelet Count 269 K/mcL (140-400); Red Blood Count 4.39 M/mcL (4.19-5.50); Red Cell Distribution Width 13.2 % (11.5-14.5); Segmented Neutrophils % 59.5 %
[2016-03-28 17:25] LABS: Magnesium 1.9 mg/dL (1.6-2.6); Phosphorous 3.9 mg/dL (2.3-4.7)
[2016-03-28] MEDS: Furosemide 40 MG TABLET PO SCH (17:34)
[2016-03-28] MEDS: Insulin LISPRO 300 UNITS/3 ML VIAL SQ SCH ×2 (17:34→20:03)
[2016-03-28] MEDS: Gabapentin 300 MG CAPSULE PO SCH (19:58)
[2016-03-28] MEDS: Insulin DETEMIR 100 UNIT/ML X5UNITS SQ SCH (19:59)
[2016-03-28] MEDS ORDERED: Insulin DETEMIR 100 UNIT/ML X5UNITS SQ SCH (21:00)
[2016-03-29 04:47] LABS: Calcium 8.8 mg/dL (8.6-10.8); Potassium 4.3 mEq/L (3.5-4.5)
[2016-03-29] MEDS: Gabapentin 300 MG CAPSULE PO SCH ×2 (11:34→20:37)
[2016-03-29] MEDS: Furosemide 40 MG TABLET PO SCH ×2 (11:34→17:52)
[2016-03-29] MEDS: amLODIPine 5 MG TABLET PO SCH (11:34)
[2016-03-29] MEDS: Aspirin 81 MG TAB.CHEW PO SCH (11:34)
[2016-03-29] MEDS: Insulin LISPRO 300 UNITS/3 ML VIAL SQ SCH ×4 (11:35→23:27)
[2016-03-29] MEDS: Insulin DETEMIR 100 UNIT/ML X5UNITS SQ SCH ×2 (12:18→20:37)
--- NOTE | 2016-03-29 12:20 | Internal Med Progress Note ---
Date of Encounter: 03/29/16 Time of Encounter: 12:00 - Assessment and plan (1) Chest pain Current Visit: Yes Status: Acute Assessment and plan: Patient is at risk for ACS due to diabetes, morbid obesity, obstructive sleep apnea. Negative troponin x3. EKG showed no acute ischemic changes. negative venous Doppler of lower extremities. echocardiogram is pending. Patient is not a candidate for CT angiogram of the chest due to his kidney function. Chest pain free now. He declines stress test because he developed a significant side effect last time he had it here. However, he will accept undergoing the stress test if he gets the medication he received at [facility] in 2013. Our cardiology service was notified. Qualifiers: Chest pain type: unspecified Qualified Code(s): R07.9 - Chest pain, unspecified (2) CHF (congestive heart failure) Current Visit: Yes Status: Acute Assessment and plan: Unknown type of heart failure. pending echocardiogram. Chest x-ray showed no acute process. Could be right-sided heart failure from COPD and sleep apnea. clinically improving, pt had good diuresis (UOP 1400 ml). continue Lasix twice a day, metoprolol and Fluid restriction. Qualifiers: Congestive heart failure type: unspecified congestive heart failure type Congestive heart failure chronicity: chronic Qualified Code(s): I50.9 - Heart failure, unspecified (3) CKD (chronic kidney disease) stage 3, GFR 30-59 ml/min Current Visit: No Status: Chronic Assessment and plan: at baseline. continue lasix adn fluid restriction. Avoid nephrotoxins as possible. Close monitoring. (4) HTN (hypertension) Current Visit: No Status: Chronic Assessment and plan: Controlled. Continue home dose of amlodipine, and metoprolol. We will hold home dose of spironolactone due to kidney function. Qualifiers: Hypertension type: essential hypertension Qualified Code(s): I10 - Essential (primary) hypertension (5) Uncontrolled diabetes mellitus Current Visit: No Status: Chronic Assessment and plan: Continue Levemir 35 units twice a day. Insulin sliding scale medium dose. Strict Diabetic diet. 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 (7) DIMITRI (obstructive sleep apnea) Current Visit: Yes Status: Acute Assessment and plan: Continue CPAP at bedtime and during naps. (8) Depression Current Visit: Yes Status: Acute Assessment and plan: patient presented with suicidal ideation on 03/27. No more suicidal ideation. continue celexa. Qualifiers: Depression Type: major depressive disorder Major depression recurrence: recurrent Active/Remission status: currently active Major depression episode severity: unspecified Qualified Code(s): F33.9 - Major depressive disorder, recurrent, unspecified - Subjective Interval history: no chest pain. his shortness of breath is better. he refused the medication for the stress test. - Constitutional Vitals: Temp Pulse Resp BP Pulse Ox 98.4 F 54 16 157/65 94 L 03/29/16 11:14 03/29/16 11:14 03/29/16 11:14 03/29/16 11:14 03/29/16 11:14 General appearance: Present: cooperative, A&O X 3, morbidly obese, pleasant, no acute distress, answers questions appropriately - Eye Eye exam: Present: PERRL - Neck Neck exam general surgery: Present: supple, trachea midline. Absent: lymphadenopathy - Respiratory Respiratory exam: Present: decreased breath sounds (at bases) - Cardiovascular Cardiovascular exam: Present: distant heart sounds, RRR - GI/Abdominal GI/Abdominal exam: Present: normal bowel sounds, soft. Absent: distended, tenderness - Extremities Exam Additional comments: LE edema seems improved from yesterday (1+) - Back Exam Back exam: Absent: CVA tenderness (L), CVA tenderness (R) - Neurological Exam Neurological exam: Present: alert, oriented X3. Absent: facial droop, speech deficit - Skin Skin exam: Absent: rash Internal Medicine: Result - Labs CBC & Chem 7: 03/28/16 16:42 03/29/16 03:32 Labs: Short CBC 03/28/16 Range/Units 16:42 WBC 9.3 (4.3-11.1) K/mcL Hgb 13.1 (12.9-16.9) g/dL Hct 39.3 (37.5-50.1) % Plt Count 269 (140-400) K/mcL Neutrophils # 5.5 (1.6-8.9) K/mcL BMP 03/29/16 03:32 Sodium 135 L Potassium 4.3 Chloride 101 Carbon Dioxide 21 BUN 35 H Creatinine 2.21 H Glucose 230 H Calcium 8.8 Cardiac Enzymes 03/28/16 03/28/16 03/29/16 Range/Units 16:07 21:59 03:32 Troponin I 0.01 0.02 0.02 (0-0.03) ng/mL - Impressions Impressions Chest X-Ray 03/28/16 13:45 IMPRESSION: No active cardiopulmonary disease D/ / Arthur Oviedo MD / Arthur Oviedo MD Interpreting Provider: Arthur Oviedo MD Consult Discharge Plan - Plan Referrals: NO,PCP [Primary Care Provider] -
--- NOTE | 2016-03-29 12:22 | ECHO - Doppler Report ---
Echocardiogram Name: Eduardo Ribeiro Date of Study: 03/29/2016 Date: 1955 Ht: 67.0 in Medical Record#: [id number] Age: 60 Wt: 362.0 lb Gender: Male BSA: 2.6 Order #: [id number] Location: [facility] Room #: [id number] Reading Physician: Femi Cruz MD, [facility] Sander Operator: Sharona Schneider RVT Ordering Physician: Caprice Porras MD Primary Physician: None Indications: History of heart failure, Chest pain Impressions: Poor echocardiographic windows. Only limited information can be obtained from this examination. Marked sinus bradycardia. Heart rate was mainly in the upper 40's during this exam. Left ventricle appears mildly dilated with grossly normal LV systolic function. Many myocardial segments were not adequately visualized. Cannot accurately estimate LVEF. Diastolic function was not adequately assessed. Right ventricle appears normal in size and function on limited views. Valvular function was not adequately assessed on this study. Unable to estimate RVSP due to lack of TR jet. Consider an alternative cardiac imaging modality if clinically indicated. Findings: Study Quality * Poor echocardiographic windows. Only limited information can be obtained from this examination. ECG Findings * Marked sinus bradycardia. Heart rate was mainly in the upper 40's during this exam. Left Ventricle * Left ventricle appears mildly dilated with grossly normal LV systolic function. Many myocardial segments were not adequately visualized. Cannot accurately estimate LVEF. * Grossly normal LV wall thickness. * Diastolic function was not adequately assessed. Right Ventricle * Right ventricle appears normal in size and function on limited views. Left Atrium * Left atrium is not well visualized. Right Atrium * Right atrium is not well visualized. Aorta * Normally sized aortic root. Pericardium * There is no pericardial effusion present. IVC * The IVC is borderline dilated. Aortic Valve * Aortic valve not well visualized. * Valvular function was not adequately assessed. Mitral Valve * Mitral valve not well visualized. * Valvular function was not adequately assessed. Tricuspid Valve * Tricuspid valve not well visualized. * No evidence of significant valvular dysfunction on limited assessment. * Unable to estimate RVSP due to lack of TR jet. Pulmonic Valve * Pulmonic valve not well visualized. * No evidence of significant valvular dysfunction on limited assessment. History Hypertension Diabetes Hypercholesteremia Family History of CAD Congestive Heart Failure Measurements: BP: 116/ 64 2D Normal Values IVSd: 1.00 cm 0.6 - 1.0 cm LVIDd: 6.10 cm 3.7 - 5.6 cm LVPWd: 1.00 cm 0.6 - 1.1 cm AO: 3.20 cm < 4.0 cm Updated by Femi Cruz MD, [facility] on 03/29/2016 12:15:35 PM electronically signed on 03/29/2016 12:17:10 PM with status of Final
--- NOTE | 2016-03-29 13:00 | Venous Imaging Report ---
LE Venous Duplex Patient Name:Eduardo Ribeiro Order Number:[id number] Procedure Date:03/29/2016 Date:1955ge:60 yrs Gender:Male Height: cm / inWeight:164.20 kg / 362.01 lb Location:[facility] Room #: [facility] Customer Service Associate:Sharona Schneider RVT Referring MD:Caprice Porras MD regulatory compliance officer:None Reading MD:Arthur Willard MD , FACS Primary Indications:Lower extremity edema Secondary Indications: Risk Factors Yes/No Hx of DVT No Hx of Chemotherapy No Trauma to Veins No Impressions: Bilateral lower extremity: normal superficial and deep exam. Findings Venous Duplex Results: Right: Venous imaging of the lower extremity reveals full patency and normal vessel compressibility of the right distal iliac, right common femoral, right superficial femoral, right popliteal, right posterior tibial, right great saphenous and right lesser saphenous. Doppler signals in the evaluated veins were normal. Left: Venous imaging of the lower extremity reveals full patency and normal vessel compressibility of the left distal iliac, left common femoral, left superficial femoral, left popliteal, left posterior tibial, left peroneal, left great saphenous and left lesser saphenous. Doppler signals in the evaluated veins were normal. Prior Study: No prior study available for comparison. Lower Extremity Venous Duplex Side Vein Compress Spontaneous Flow Augment Diameter (cm) Depth (cm) Right Distal Iliac Normal Yes Phasic Yes Right Common Femoral Normal Yes Phasic Yes Right Superficial Femoral Normal Yes Phasic Yes Right Popliteal Normal Yes Phasic Yes Right Posterior Tibial Normal Yes Phasic Yes Right Great Saphenous Normal Yes Phasic Yes Right Lesser Saphenous Normal Yes Phasic Yes Left Distal Iliac Normal Yes Phasic Yes Left Common Femoral Normal Yes Phasic Yes Left Superficial Femoral Normal Yes Phasic Yes Left Popliteal Normal Yes Phasic Yes Left Posterior Tibial Normal Yes Phasic Yes Left Peroneal Normal Yes Phasic Yes Left Great Saphenous Normal Yes Phasic Yes Left Lesser Saphenous Normal Yes Phasic Yes Updated by Arthur Willard MD, FACS on 03/29/2016 12:56:04 PM Arthur Willard MD electronically signed on 03/29/2016 12:56:34 PM with status of Final
--- NOTE | 2016-03-29 17:18 | Consult Note ---
Date of Encounter: 03/29/16 Time of Encounter: 16:15 Assessment & Recommendation (1) Major depression, recurrent, chronic Status: Acute History of Present Illness Requesting Physician: Caprice Porras Reason for consult: Continuity of care from being discharged on 1-A prior day History of present illness: Mr. Ribeiro is a 60 year old male who was moved to medical floor yesterday from 1A psychiatric unit where I was treating him. He left 1A secondary to having chest discomfort and difficulty breathing. Patient tells me today that he is feeling much better. He states he feels more energized towards taking care of his health better. He has been in the medical bed overnight and has been urinating a lot, "getting all that fluid off my lungs." He should be medically cleared to go home tomorrow. He denies any suicidal/homicidal ideation. He denies any auditory/visual hallucinations. He states he is feeling much better after having spoke with me. He states that he understands more in regards to his physical health affecting his mental health. His was present during this discussion to and will help support him and doing those things. We talk more about his diabetes getting under better control. He has a referral for an compressor station engineer at [facility] in [place] that he is going to see for better management of his diabetes and for nutrition counseling for him and his . He is also going to talk to his family doctor about finding out about getting a consult in regards to lap band procedure for gastric bypass to try and lose weight and/or finding other ways to exercise and lose weight [facility]. He states he knows he needs to lose weight that he will emotionally feel better as well as physically feel better if that occurred. He is also going to talk to his family doctor and get a referral to see an dispute resolution specialist about possibly getting viscous injections into his knees to help the pain, temporarily to help exercise to lose weight, then see about the knee replacements he was told to get 15 years ago. I also spoke to him about the erectile dysfunction. He understands that his body habitus plays a large role in interfering with the appearance of his penis as previously discussed in the intake on 1A. He knows he can see a Urologist to talk about treatment options in regards to improving erectile function; possibly pumps or injections as an option he may explore. In regards to his depression, he states is feeling better that the high dose of Celexa might have been causing him to feel tired and slow. He is going to continue with the 40 mg dose Celexa. Then on outpatient follow-up, inquire about possibly augmenting with Wellbutrin or changing to Wellbutrin altogether if he needs further antidepressant medications. Regarding safety in the home, his tells me that all the guns are out of the house and are in police custody for now. He knows it is imperative that he does follow-up with Tony to do some "talk therapy"/counseling but also in regards to medications. He states just talking to me help with his mental health and he realizes what he did in regards to the thoughts of hurting himself would have hurt not only himself, but his family. He has been surrounded by family since he has been in the hospital. He realizes that if he did anything to hurt himself that it would hurt them he does not want to do that. He denies any impulsivity, any type of psychotic symptoms. He feels he has more physical energy whether that be from the medical visit on the medical floor or a decrease in Celexa. He is not sure, but he knows that physically and emotionally he feels better. He is future oriented towards getting his health on track and seeing these physicians and consults to potentially become more physically active. He understands he has Mental Health outpatient appointments that he needs to keep and intends to do so. CC: Caprice Porras Past Med Surg Social Fam HX - Past Medical History Medical history: CHF, COPD, diabetes, renal disease - Past Surgical History Surgical History: no surgical history - Social History Smoking Status: Former smoker Smokeless Tobacco Status: No Alcohol use: none Drug use: none - Family History Father Living Status: Age at : 70 Cause of : MA Hx Family Cardiac Disorders: Yes Medications & Allergies Amlodipine Besylate 10 mg PO DAILY 03/27/16 [History] Aspirin 81 mg PO DAILY 03/27/16 [History] Atorvastatin [Lipitor] 40 mg PO HS 03/27/16 [History] Citalopram Hydrobromide [Citalopram HBr] 40 mg PO DAILY 03/27/16 [History] Ergocalciferol (VITAMIN D2) [Vitamin D2] 50,000 unit PO 2XW 03/27/16 [History] Gabapentin [Neurontin] 600 mg PO BID 03/27/16 [History] Glimepiride [Amaryl] 4 mg PO QAM 03/27/16 [History] Insulin NPH Hum/Reg Insulin Hm [Novolin 70-30 100 Unit/ml Vial] 45 unit SQ BID PRN 03/27/16 [History] Metoprolol [Lopressor] 25 mg PO BID 03/27/16 [History] Spironolactone [Aldactone] 50 mg PO DAILY 03/27/16 [History] Furosemide [Lasix] 40 mg PO DAILY #60 tablet 03/30/16 [Rx] Insulin Glargine,Hum.rec.anlog [Lantus Solostar] 40 unit SQ HS #0 03/30/16 [Rx] Allergies Penicillins Allergy (Verified 03/27/16 01:14) See Comments unknown, had rxn as child Sulfa (Sulfonamide Antibiotics) Allergy (Verified 03/27/16 01:14) See Comments unknown Mental Status Exam Patient orientation: Yes Person, Yes Time, Yes Place, Yes Circumstance Level of alertness: Alert, Follows commands Patient appearance: Appropriate, Obese Behavior: calm, cooperative Psychomotor activity: Normal Eye contact: Maintains Eye Contact Mood description: Depressed (tired, but more bright than when he was on 1A), Anxious Affect description: congruent with mood, full range Speech pattern: Normal rate, Normal rhythm, Normal tone, Appropriate Speech volume: Normal Thought process: Intact, Logical, Linear, Goal Oriented Thought content: Yes Intact Attention span: Capable of Focused Attention Memory description: Grossly Intact Patient reliability: Reliable Historian Intelligence estimate: Average Judgment: Good Insight: Partial Results - Vital Signs Vital signs: Temp Pulse Resp BP Pulse Ox 97.9 F 56 16 138/69 95 03/29/16 16:03 03/29/16 16:03 03/29/16 16:03 03/29/16 16:03 03/29/16 16:03 - Labs Labs: Laboratory Last Values WBC 9.3 K/mcL (4.3-11.1) 03/28/16 16:42 RBC 4.39 M/mcL (4.19-5.50) 03/28/16 16:42 Hgb 13.1 g/dL (12.9-16.9) 03/28/16 16:42 Hct 39.3 % (37.5-50.1) 03/28/16 16:42 MCV 89.5 fL (83.0-100.0) 03/28/16 16:42 MCH 29.8 pg (28.0-33.3) 03/28/16 16:42 MCHC 33.3 g/dL (31.6-35.5) 03/28/16 16:42 RDW 13.2 % (11.5-14.5) 03/28/16 16:42 Plt Count 269 K/mcL (140-400) 03/28/16 16:42 MPV 9.7 fL (9.4-12.4) 03/28/16 16:42 Immature Gran % 0.2 % (0-4) 03/28/16 16:42 Seg Neutrophils % 59.5 % 03/28/16 16:42 Lymphocytes % 27.6 % 03/28/16 16:42 Monocytes % 9.8 % 03/28/16 16:42 Eosinophils % 2.3 % 03/28/16 16:42 Basophils % 0.6 % 03/28/16 16:42 Neutrophils # 5.5 K/mcL (1.6-8.9) 03/28/16 16:42 Lymphocytes # 2.6 K/mcL (0.6-4.6) 03/28/16 16:42 Monocytes # 0.9 K/mcL (0.0-1.3) 03/28/16 16:42 Eosinophils # 0.2 K/mcL (0.0-0.6) 03/28/16 16:42 Basophils # 0.1 K/mcL (0.0-0.2) 03/28/16 16:42 Immature Plt Fraction 2.6 % (1.1-6.1) 03/28/16 16:42 Sodium 135 mEq/L (136-145) L 03/29/16 03:32 Potassium 4.3 mEq/L (3.5-4.5) 03/29/16 03:32 Chloride 101 mEq/L (98-109) 03/29/16 03:32 Carbon Dioxide 21 mEq/L (19-29) 03/29/16 03:32 BUN 35 mg/dL (8-26) H 03/29/16 03:32 Creatinine 2.21 mg/dL (0.72-1.25) H 03/29/16 03:32 Est GFR ( Amer) 37 (> 60) L 03/29/16 03:32 Est GFR (Non-Af Amer) 30 (> 60) L 03/29/16 03:32 BUN/Creatinine Ratio 16 (6-26) 03/29/16 03:32 Glucose 230 mg/dL (70-99) H 03/29/16 03:32 POC Glucose 225 (58-89) H 03/29/16 07:21 Calculated Osmolality 295 (280-300) 03/29/16 03:32 Calcium 8.8 mg/dL (8.6-10.8) 03/29/16 03:32 Phosphorus 3.9 mg/dL (2.3-4.7) 03/28/16 16:42 Magnesium 1.9 mg/dL (1.6-2.6) 03/28/16 16:42 Troponin I 0.02 ng/mL (0-0.03) 03/29/16 03:32 Specimen Rejected Clotted 03/28/16 16:07 Consult Discharge Plan - Plan Instructions: Heart Failure (DC), Chest Pain (DC), Depression (DC), Chronic Hypertension (DC) Additional Instructions: check your blood sugars before meals and at bedtime every day until you see you doctor, bring numbers of sugars to follow up appt. start a weight loss program. follow up a strict diabetic diet. do not drink more than 1.8 liter per day. Referrals: Janeen Clifford [Advanced Practice Nurse] - 04/06/16 4:00 pm Prescriptions: Furosemide [Lasix] 40 mg PO DAILY #60 tablet
[2016-03-30 04:48] LABS: Basophils # 0.1 K/mcL (0.0-0.2); Basophils % 0.8 %; Eosinophils # 0.3 K/mcL (0.0-0.6); Eosinophils % 3.3 %; Hematocrit 40.1 % (37.5-50.1); Hemoglobin 13.3 g/dL (12.9-16.9); Immature Granulocytes % 0.5 % (0-4); Lymphocytes # 2.7 K/mcL (0.6-4.6); Lymphocytes % 29.4 %; Mean Corpuscular HGB Conc 33.2 g/dL (31.6-35.5); Mean Corpuscular Volume 90.3 fL (83.0-100.0); Mean Platelet Volume 10.2 fL (9.4-12.4); Monocytes # 0.9 K/mcL (0.0-1.3); Monocytes % 10.1 %; Neutrophils # 5.1 K/mcL (1.6-8.9); Platelet Count 257 K/mcL (140-400); Red Blood Count 4.44 M/mcL (4.19-5.50); Red Cell Distribution Width 13.2 % (11.5-14.5); Segmented Neutrophils % 55.9 %
[2016-03-30 05:07] LABS: Potassium 4.6 mEq/L (3.5-4.5)
[2016-03-30 05:09] LABS: Magnesium 2.3 mg/dL (1.6-2.6)
[2016-03-30 07:04] VITALS: BP 147/87
[2016-03-30] MEDS: Aspirin 81 MG TAB.CHEW PO SCH (08:35)
[2016-03-30] MEDS: amLODIPine 5 MG TABLET PO SCH (08:36)
[2016-03-30] MEDS: Furosemide 40 MG TABLET PO SCH (08:36)
[2016-03-30] MEDS: Gabapentin 300 MG CAPSULE PO SCH (08:36)
[2016-03-30] MEDS: Insulin DETEMIR 100 UNIT/ML X5UNITS SQ SCH (08:36)
[2016-03-30] MEDS: Insulin LISPRO 300 UNITS/3 ML VIAL SQ SCH (08:36)
--- NOTE | 2016-03-30 10:38 | Discharge Summary ---
Date of Encounter: 03/30/16 Time of Encounter: 10:30 - Discharge Diagnosis (1) Chest pain Priority: Primary Status: Acute Qualifiers: Chest pain type: unspecified Qualified Code(s): R07.9 - Chest pain, unspecified (2) CHF (congestive heart failure) Priority: Primary Status: Acute Qualifiers: Congestive heart failure type: unspecified congestive heart failure type Congestive heart failure chronicity: chronic Qualified Code(s): I50.9 - Heart failure, unspecified (3) CKD (chronic kidney disease) stage 3, GFR 30-59 ml/min Priority: Secondary Status: Chronic (4) HTN (hypertension) Priority: Secondary Status: Chronic Qualifiers: Hypertension type: essential hypertension Qualified Code(s): I10 - Essential (primary) hypertension (5) Uncontrolled diabetes mellitus Priority: Primary Status: Chronic Qualifiers: Diabetes mellitus type: type 2 Diabetes mellitus complication status: with kidney complications Diabetes mellitus complication detail: with chronic kidney disease Diabetes mellitus terminal gauger supervisor insulin use: with terminal gauger supervisor use Chronic kidney disease stage: stage 3 (moderate) Qualified Code(s): E11.22 - Type 2 diabetes mellitus with diabetic chronic kidney disease; E11.65 - Type 2 diabetes mellitus with hyperglycemia; N18.3 - Chronic kidney disease, stage 3 ( moderate); Z79.4 - terminal supervisor (current) use of insulin (6) Morbid obesity with BMI of 50.0-59.9, adult Priority: Secondary Status: Chronic (7) DIMITRI (obstructive sleep apnea) Priority: Secondary Status: Chronic (8) Depression Priority: Primary Status: Acute Qualifiers: Depression Type: major depressive disorder Major depression recurrence: recurrent Active/Remission status: currently active Major depression episode severity: unspecified Qualified Code(s): F33.9 - Major depressive disorder, recurrent, unspecified - Discharge Medications Prescriptions: Furosemide [Lasix] 40 mg PO DAILY #60 tablet Home Medications: Amlodipine Besylate 10 mg PO DAILY 03/27/16 [History] Aspirin 81 mg PO DAILY 03/27/16 [History] Atorvastatin [Lipitor] 40 mg PO HS 03/27/16 [History] Citalopram Hydrobromide [Citalopram HBr] 40 mg PO DAILY 03/27/16 [History] Ergocalciferol (VITAMIN D2) [Vitamin D2] 50,000 unit PO 2XW 03/27/16 [History] Gabapentin [Neurontin] 600 mg PO BID 03/27/16 [History] Glimepiride [Amaryl] 4 mg PO QAM 03/27/16 [History] Insulin NPH Hum/Reg Insulin Hm [Novolin 70-30 100 Unit/ml Vial] 45 unit SQ BID PRN 03/27/16 [History] Metoprolol [Lopressor] 25 mg PO BID 03/27/16 [History] Spironolactone [Aldactone] 50 mg PO DAILY 03/27/16 [History] Furosemide [Lasix] 40 mg PO DAILY #60 tablet 03/30/16 [Rx] Insulin Glargine,Hum.rec.anlog [Lantus Solostar] 40 unit SQ HS #0 03/30/16 [Rx] Allergies/Adverse Reactions: Allergies Penicillins Allergy (Verified 03/27/16 01:14) See Comments unknown, had rxn as child Sulfa (Sulfonamide Antibiotics) Allergy (Verified 03/27/16 01:14) See Comments unknown Procedures/tests Complete & Pending: Procedures Performed prior 72 hours Category Date Time Status NM laura perf SPECT multi [NM] Routine Exams 03/28/16 16:43 Ordered ECG 12 lead ECG [ECG] AM 0600 Y 03/29/16 06:00 Ordered EV echocardiogram Routine Y 03/29/16 16:37 Completed EV venous imaging LE BI Routine Y 03/29/16 16:40 Completed Date of admission: 03/28/16 15:03 Primary care physician: PCP NO Consults: 03/28/16 15:17 Consult to Mail Order Biller [CONS] Routine Reason for SW Consult: Patient uses home O2 via family O2. 03/28/16 16:16 Consult to Respiratory Therapy [CONS] Routine Reason for Consult: cPAP at bedtime and during naps Call Completed: No - Patient Status Disposition: Home, Self-Care Condition: Good Functional capacity at discharge: independent ambulation Overall status at discharge: patient is progressing back to baseline - Discharge Instructions Instructions: Heart Failure (DC), Chest Pain (DC), Depression (DC), Chronic Hypertension (DC) Follow Up With: Janeen Clifford [Advanced Practice Nurse] - 04/06/16 4:00 pm Additional Instructions: check your blood sugars before meals and at bedtime every day until you see you doctor, bring numbers of sugars to follow up appt. start a weight loss program. follow up a strict diabetic diet. do not drink more than 1.8 liter per day. - Diet and Activity Activity: resume usual activities as tolerated, other (CPAP at bedtime and during naps) Diet: diabetic diet, low fat, low cholesterol, low salt diet, other (renal) Interval History: patient denies any chest pain or shortness of breath. his leg swelling is decreasing. he is ambulating and eating well. Hospital course: Mr. Ribeiro is a 60 year old male with past medical history of COPD, diabetes mellitus, hypertension, CKD stage III, obstructive sleep apnea on CPAP, and morbid obesity. Patient was admitted to our inpatient psychiatry floor because of suicidal ideations and we were consulted because of left-sided chest pain and shortness of breath. Patient was diagnosed with acute heart failure and his lasix was increased and he was placed on strict fluid restriction. Patient is at risk for ACS due to diabetes, morbid obesity, obstructive sleep apnea. Negative troponin x3. EKG showed no acute ischemic changes. negative venous Doppler of lower extremities. echocardiogram was of poor quality. Patient is not a candidate for CT angiogram of the chest due to his kidney function. patient refused stress test despite being explained all his risk for an TX. At discharge, patient was asymptomatic. He was ambulating and eating well. PLAN: Follow-up with primary care physician next week for CHF, HTN and CAD. - Time Spent with Patient Total time spent providing and/or coordinating discharge services: - Constitutional Vitals: Temp Pulse Resp BP Pulse Ox 97.9 F 53 17 147/87 97 03/30/16 06:56 03/30/16 06:56 03/30/16 06:56 03/30/16 06:56 03/30/16 08:10 General appearance: Present: cooperative, A&O X 3, morbidly obese, pleasant, no acute distress, answers questions appropriately - Eye Eye exam: Present: PERRL, sclera anicteric - Neck Neck exam general surgery: Present: supple, trachea midline. Absent: lymphadenopathy - Respiratory Respiratory exam: Present: CTAB - Cardiovascular Cardiovascular exam: Present: RRR - GI/Abdominal GI/Abdominal exam: Present: normal bowel sounds, soft. Absent: distended, tenderness - Extremities Exam Extremities exam: Present: pedal edema (1+ LE edema) - Back Exam Back exam: Absent: CVA tenderness (L), CVA tenderness (R) - Neurological Exam Neurological exam: Present: alert, oriented X3, strengths equal and symetr throughout. Absent: facial droop, speech deficit - Skin Skin exam: Absent: rash
--- NOTE | 2016-03-30 15:58 | Electrocardiograph Report ---
[facility] Test Date: 2016-03-29 Pat Name: Eduardo Ribeiro Department: 113 Room: 3B37 Gender: M Partner: EF : 1955 Requested By: Caprice Porras Order Number: [id number] Reading MD: Brigid Kendrick Measurements Intervals [place] Rate: 44 P: 67 [place]: 196 QRS: 28 QRSD: 83 T: 61 QT: 472 QTc: 423 Interpretive Statements SINUS BRADYCARDIA Electronically Signed On 03-30-16 15:57:45 EST by Brigid Kendrick
== END 2016-03-30 11:43 | disposition home or self-care (01) ==
LOC: 3BNU
PROVIDERS: ADMIT Internal Medicine; ATTEND Internal Medicine